=== PATIENT | male | born 1965 | race Caucasian/White ===

== ENCOUNTER 2023-01-30 07:10 | Day surgery (SDC) | payer OTHER ==
[~2023-01-30] VITALS: Ht 162.6 cm; Wt 106.6 kg
[2023-01-30 07:50] LABS: BASOPHILS % (AUTO) 0.6 % (0.0-2.0); EOSINOPHILS # (AUTO) 0.8 K/uL (0-0.4); EOSINOPHILS % (AUTO) 12.6 % (0.0-4.0); HEMATOCRIT 39.5 % (36-52); LYMPHOCYTES # (AUTO) 2.6 K/uL (2.0-11.5); LYMPHOCYTES % (AUTO) 40.3 % (20.5-51.1); MEAN CORPUSCULAR HEMOGLOBIN 29 pg (27-31); MEAN CORPUSCULAR HGB CONC 33 g/dL (33-37); MEAN CORPUSCULAR VOLUME 86.9 fL (80-94); MONOCYTES # (AUTO) 0.7 K/uL (0.8-1.0); MONOCYTES % (AUTO) 10.2 % (1.7-9.3); NEUTROPHILS # (AUTO) 2.4 K/uL (1.8-7.7); NEUTROPHILS % (AUTO) 36.3 % (42.2-75.2); PLATELET COUNT (AUTO) 232 K/uL (140-450); RED BLOOD CELL COUNT(AUTO) 4.55 MIL/uL (4.20-6.10); RED CELL DISTRIBUTION WIDTH 15.1 % (11.6-13.7); WHITE BLOOD COUNT (AUTO) 6.5 K/uL (4.8-10.8)
[2023-01-30 08:21] LABS: PROTHROMBIN TIME 9.6 secs (10.8-13.4)
[2023-01-30] MEDS ORDERED: fentaNYL citrate 0.05 MG/ML VIAL ONE (08:21)
[2023-01-30] MEDS ORDERED: LIDOCAINE MPF 1% 5 ML ONE (08:21)
[2023-01-30] MEDS ORDERED: MORPHINE SULFATE 4 MG/ML SYR IVP PRN (10:00)
[2023-01-30] MEDS ORDERED: fentaNYL citrate 0.05 MG/ML VIAL IVP ONE (12:55)
== END 2023-01-30 10:45 | disposition home or self-care (01) ==
LOC: MMU 07:10 → MOR 07:10
PROVIDERS: ATTEND Internal Medicine Gastroenterology
DX: K75.81 Nonalcoholic steatohepatitis (NASH) (principal); E11.9 Type 2 diabetes mellitus without complications; E78.00 Pure hypercholesterolemia, unspecified; Z98.890 Other specified postprocedural states; Z88.0 Allergy status to penicillin; Z88.8 Allergy status to other drugs, medicaments and biological substances
CPT/HCPCS: 36415; 47000; 76942; 85025; 85610; 85730; J2001; J3010; Q0092

== ENCOUNTER 2024-04-05 09:44 | Day surgery (SDC) | payer OTHER ==
[~2024-04-05] VITALS: Ht 162.6 cm; Wt 99.8 kg
[2024-04-05] MEDS ORDERED: fentaNYL citrate 0.05 MG/ML VIAL ONE (11:20)
[2024-04-05] MEDS: LIDOCAINE 2% 1000 MG/50 ML VIAL INJ ONE (11:20)
[2024-04-05] MEDS: fentaNYL citrate 0.05 MG/ML VIAL IVP ONE (11:22)
[2024-04-05] MEDS: MIDAZOLAM 2 MG/2 ML VIAL IVP ONE (11:40)
[2024-04-05] MEDS ORDERED: MIDAZOLAM 2 MG/2 ML VIAL ONE (11:43)
== END 2024-04-05 13:17 | disposition home or self-care (01) ==
LOC: MDS 09:44 → MMU 09:45 → MDS 13:17
PROVIDERS: ATTEND Internal Medicine Gastroenterology
DX: K75.81 Nonalcoholic steatohepatitis (NASH) (principal); Z90.49 Acquired absence of other specified parts of digestive tract; Z88.0 Allergy status to penicillin; Z88.8 Allergy status to other drugs, medicaments and biological substances; Z98.890 Other specified postprocedural states
CPT/HCPCS: 47000; 76942; J2001; J2250; J3010; Q0092